=== PATIENT | male | born 1975 | race Caucasian/White ===

== ENCOUNTER 2017-01-19 20:45 | Emergency (ER) | payer OTHER ==
[~2017-01-19] VITALS: Ht 185.4 cm; Wt 90.7 kg
[2017-01-19 20:58] VITALS: BP 143/88
--- NOTE | 2017-01-19 21:44 | NUR ---
PATIENT PRESENTS TO ED WITH W/O LEFT THUMB AND LEFT FOOT PAIN AFTER FALL. . PT DENIES N/V/D; SKIN IS PINK/WARM/DRY; AAOX4 WITH EVEN AND STEADY GAIT; LUNGS CLEAR BL; HR EVEN AND REGULAR; PT DENIES ANY FEVER, CP, SOB, OR COUGH AT THIS TIME; PATIENT STATES PAIN OF 10/10 AT THIS TIME; VSS; PATIENT POSITIONED FOR COMFORT; HOB ELEVATED; BEDRAILS UP X2; BED DOWN. ER MD MADE AWARE OF PT STATUS.
--- NOTE | 2017-01-19 21:46 | NUR ---
TO ER BED 8
--- NOTE | 2017-01-19 22:45 | NUR ---
Patient being evaluated by physician at bedside.
[2017-01-19] MEDS ORDERED: KETOROLAC 30 MG/ML VIAL IM ONE (22:50)
[2017-01-19] MEDS ORDERED: HYDROcodone/APAP 5/325 MG 1 TAB TAB PO ONE (22:50)
--- NOTE | 2017-01-19 23:30 | NUR ---
Patient discharged with v/s stable. Written and verbal after care instructions given and explained. Patient alert, oriented and verbalized understanding of instructions. Ambulatory with steady gait. All questions addressed prior to discharge. ID band removed. Patient advised to follow up with PMD. Rx of NORCO AND NAPROSYN given. Patient educated on indication of medication including possible reaction and side effects. Opportunity to ask questions provided and answered.
[2017-01-19 23:36] VITALS: BP 136/84
== END 2017-01-19 23:30 | disposition home or self-care (01) ==
LOC: MED 20:45
DX: S62.232A Other displaced fracture of base of first metacarpal bone, left hand, initial encounter for closed fracture (principal); S93.602A Unspecified sprain of left foot, initial encounter; W10.8XXA Fall (on) (from) other stairs and steps, initial encounter; Y93.89 Activity, other specified; Y92.89 Other specified places as the place of occurrence of the external cause; Y99.8 Other external cause status
CPT/HCPCS: 29125; 73110; 73630; 96372; 99284; J1885